=== PATIENT | male | born 1975 | race Two or more races ===

== ENCOUNTER 2016-12-21 03:51 | Emergency (ER) | payer BC ==
[~2016-12-21] VITALS: Ht 170.2 cm; Wt 99.8 kg
[2016-12-21 04:24] VITALS: BP 115/72
== END 2016-12-21 08:39 | disposition left against medical advice (07) ==
LOC: ER 04:01
DX: R10.9 Unspecified abdominal pain (principal); R11.2 Nausea with vomiting, unspecified; Z53.21 Procedure and treatment not carried out due to patient leaving prior to being seen by health care provider
CPT/HCPCS: 74176

== ENCOUNTER 2016-12-22 18:16 | Emergency (ER) | payer BC ==
[~2016-12-22] VITALS: Ht 167.6 cm; Wt 99.8 kg
[2016-12-22 19:20] LABS: Albumin 4.3 g/dL (3.4-5.0); BUN/Creatinine Ratio 13.9; Bilirubin, Total 0.5 mg/dL (0.2-1.0); Calcium 9.1 mg/dL (8.5-10.1); Potassium 3.4 mmol/L (3.5-5.1)
[2016-12-22 19:41] LABS: Basophils # (auto) 0 uL; Basophils % (auto) 0.2 % (0.0-2.0); Eosinophils # (auto) 0 uL; Eosinophils % (auto) 0.4 % (0.0-7.0); Hematocrit 45.1 % (41.0-53.0); Hemoglobin 14.4 g/dL (13.5-17.5); Lymphocytes % (auto) 27.8 % (10.0-50.0); Mean Corpuscular Hemoglobin 28.2 pg (28.0-32.0); Mean Corpuscular Volume 88.2 fL (80.0-100.0); Mean Platelet Volume 8.7 fL (7.4-10.4); Monocytes # (auto) 0.4 uL; Monocytes % (auto) 5.7 % (0.0-12.0); Neutrophils # (auto) 4.7 uL; Neutrophils % (auto) 65.9 % (37.0-80.0); Platelet Count (auto) 294 10^3/uL (140-450); Red Cell Distribution Width 13.4 % (11.6-16.0); White Blood Cell 7.2 10^3/uL (4.4-10.8)
[2016-12-23 00:34] VITALS: BP 129/75
== END 2016-12-23 00:35 | disposition home or self-care (01) ==
LOC: ER 18:20
DX: K80.20 Calculus of gallbladder without cholecystitis without obstruction (principal); R10.13 Epigastric pain
CPT/HCPCS: 36415; 80053; 82150; 83690; 85025

== ENCOUNTER 2020-12-26 21:55 | Emergency (ER) | payer BC ==
[~2020-12-26] VITALS: Ht 167.6 cm; Wt 102.1 kg
[2020-12-27] MEDS ORDERED: SODIUM CHLORIDE 0.9% 1,000 ML IV ONE (00:30)
[2020-12-27] MEDS ORDERED: LIDOCAINE 1% HCL (LOCAL ANESTH.) INJ 20ML MDV ID ONE (01:00)
[2020-12-27 01:12] LABS: Basophils # (auto) 0 10 ^3/uL (0-0.2); Basophils % (auto) 0.5 % (0.0-2.0); Eosinophils # (auto) 0.1 10 ^3/uL (0-0.8); Eosinophils % (auto) 0.8 % (0.0-7.0); Hematocrit 41.2 % (41.0-53.0); Hemoglobin 14.1 g/dL (13.5-17.5); Lymphocytes # (auto) 1.8 10 ^3/uL (0.4-5.4); Lymphocytes % (auto) 21.6 % (10.0-50.0); Mean Corpuscular Hemoglobin 29.7 pg (28.0-32.0); Mean Corpuscular Hgb Conc. 34.3 g/dL (32.0-36.0); Mean Corpuscular Volume 86.5 fL (80.0-100.0); Monocytes # (auto) 0.5 10 ^3/uL (0-1.3); Neutrophils % (auto) 71.1 % (37.0-80.0); Platelet Count (auto) 321 10^3/uL (140-450); Red Blood Cells 4.76 10^6/uL (4.5-5.90); Red Cell Distribution Width 13.1 % (11.8-14.3); White Blood Cell 8.5 10^3/uL (4.4-10.8)
[2020-12-27 01:27] LABS: INR 1.04 (0.9-1.15); Partial Thromboplastin Time 28.3 sec (23.0-31.2)
[2020-12-27] MEDS ORDERED: HYDROcodone-ACET 5/325MG TAB PO ONE (01:30)
[2020-12-27 01:32] LABS: Calcium 8.8 mg/dL (8.5-10.1)
[2020-12-27 01:35] LABS: BUN/Creatinine Ratio 22.4
[2020-12-27 02:00] VITALS: BP 132/92
[2020-12-27] MEDS ORDERED: BACITRACIN INJ 50000 UNIT VIAL TOP ONE (02:15)
[2020-12-27] MEDS ORDERED: BACITRACIN TOP OINT 1 UD PKG TOP ONE (02:30)
== END 2020-12-27 02:45 | disposition home or self-care (01) ==
LOC: ER 22:01
DX: S61.411A Laceration without foreign body of right hand, initial encounter (principal); X58.XXXA Exposure to other specified factors, initial encounter; Y93.89 Activity, other specified; Y92.89 Other specified places as the place of occurrence of the external cause; Y99.8 Other external cause status
CPT/HCPCS: 12002; 36415; 73130; 80048; 85025; 85610; 85730; 86850; 86900; 86901; 99284; J2001